=== PATIENT | male | born 1960 | race African-American/Black ===

== ENCOUNTER 2021-02-10 12:55 | Outpatient (CLI) | payer OTHER, SELFPAY | END 2021-02-10 12:56 | disposition home or self-care (01) | LOC: ANHAUDIO 12:59 | DX: H90.2 Conductive hearing loss, unspecified (principal) | CPT/HCPCS: 92557; 92567 ==

== ENCOUNTER 2021-04-21 08:00 | Outpatient (RCR) | payer OTHER, SELFPAY | END 2021-04-21 23:59 | disposition home or self-care (01) | LOC: ANHAUDIO 08:00 | DX: Z46.1 Encounter for fitting and adjustment of hearing aid (principal) | CPT/HCPCS: 99199; V5160; V5261 ==